=== PATIENT | female | born 1985 | race Caucasian/White ===

== ENCOUNTER 2021-07-06 06:58 | Day surgery (SDC) | payer OTHER, SELFPAY ==
[~2021-07-06] VITALS: Ht 160 cm; Wt 80.7 kg
[2021-07-06] MEDS ORDERED: MIDAZOLAM HCL 5 MG/ML VIAL (VERSED) IV ONE (09:23)
[2021-07-06] MEDS ORDERED: NS IRRIG SOLN 1000 ML IR ONE (09:23)
[2021-07-06] MEDS ORDERED: WATER FOR IRRIGATION,STERILE 1,000 ML IRRIG.SOLN IR ONE (09:23)
[2021-07-06] MEDS ORDERED: NS 1000 ML IV.SOLN IV ONE (09:23)
[2021-07-06] MEDS ORDERED: fentaNYL CITRATE 250 MCG/5 ML AMP ONE (09:23)
[2021-07-06] MEDS ORDERED: PHENYLEPHRINE HCL 10 MG/ML VIAL (NEOSYNEPHRINE) ONE (09:23)
[2021-07-06] MEDS ORDERED: ROCURONIUM BROMIDE 10 MG/ML (ZEMURON) ONE (09:23)
[2021-07-06] MEDS ORDERED: ONDANSETRON HCL 4 MG/2 ML VIAL ONE (09:23)
[2021-07-06] MEDS ORDERED: PROPOFOL 200MG/ 20ML VIAL (DIPRIVAN) IV ONE (09:23)
[2021-07-06] MEDS ORDERED: GLYCOPYRROLATE 0.2 MG/ML VIAL ONE (09:23)
[2021-07-06] MEDS ORDERED: BUPIVACAINE /EPINEPHRINE/PF 0.25% 30 ML VIAL INJ ONE (09:23)
[2021-07-06] MEDS ORDERED: SUCCINYLCHOLINE CHLORIDE 20 MG/ML(QUELICIN) ONE (09:23)
[2021-07-06] MEDS ORDERED: SEVOFLURANE 15 MIN GAS INH ONE (09:23)
[2021-07-06] MEDS ORDERED: HYDROmorphone 1 MG/ML INJ. CARTRIDGE IVP PRN (10:15)
[2021-07-06] MEDS ORDERED: KETOROLAC TROMETHAMINE 30 MG VIAL IVP PRN (10:15)
[2021-07-06] MEDS ORDERED: ACETAMINOPHEN 325 MG TABLET PO ONE (10:15)
[2021-07-06] MEDS ORDERED: ONDANSETRON HCL 4 MG/2 ML VIAL IVP PRN ×2 (10:15→10:45)
[2021-07-06] MEDS ORDERED: ONDANSETRON 4 MG ODT TAB PO PRN (10:45)
[2021-07-06] MEDS ORDERED: HYDROcodone/ACETAMIN 5-325 MG TAB (NORCO/ VICODIN) PO PRN (10:45)
[2021-07-06] MEDS ORDERED: ACETAMINOPHEN 500 MG TABLET PO PRN (10:45)
[2021-07-06] MEDS ORDERED: KETOROLAC TROMETHAMINE 30 MG VIAL ONE (11:05)
[2021-07-06 15:45] VITALS: BP_SYST 106
== END 2021-07-06 12:45 | disposition home or self-care (01) ==
LOC: SDS 06:58 → SMU 06:59 → SDS 12:45
PROVIDERS: ATTEND Otolaryngology
DX: J35.01 Chronic tonsillitis (principal); J35.8 Other chronic diseases of tonsils and adenoids; Z20.822 Contact with and (suspected) exposure to COVID-19; Z79.899 Other long term (current) drug therapy
CPT/HCPCS: 36415; 42826; 87426; 88304; J0330; J1885; J2250; J2370; J2405; J2704; J3010; J3490 ×2; J7030